=== PATIENT | male | born 1995 | race African-American/Black ===

== ENCOUNTER 2022-10-23 17:05 | Emergency (ER) | payer MEDICAID ==
[~2022-10-23] VITALS: Ht 177.8 cm; Wt 59.1 kg
[2022-10-23 17:43] VITALS: BP 150/72; PULSE 68; RESP 18; TEMP 98.5; O2SAT 100
[2022-10-23] MEDS ORDERED: IBUP-2028 MT (19:04)
== END 2022-10-23 19:11 | disposition home or self-care (01) ==
LOC: ER 17:05
DX: M25.561 Pain in right knee (principal); V99.XXXA Unspecified transport accident, initial encounter; Y93.89 Activity, other specified; Y92.89 Other specified places as the place of occurrence of the external cause; Y99.8 Other external cause status
CPT/HCPCS: 73562; 99283